=== PATIENT | female | born 1940 | race Caucasian/White ===

== ENCOUNTER 2018-04-16 12:03 | Inpatient (IN) | payer MEDICARE ==
[~2018-04-16] VITALS: Ht 165.1 cm; Wt 66.2 kg
--- OUTSIDE RECORDS SUMMARY | ~2018-04-16 | XMS | Encounter Summary ---
Demographics + + + | Address | [address] | | | [place] [address] | + + + | Home Phone | | + + + | Preferred Language | Unknown | + + + | Marital Status | | + + + | Jainism Affiliation | Unknown | + + + | Race | Unknown | + + + | Ethnic Group | Unknown | + + + Author + + + | Author | [facility] | + + + | Organization | [facility] | + + + | Address | Unknown | + + + | Phone | Unavailable | + + + Support + + +---------+ + | Name | Relationship | Address | Phone | + + +---------+ + | Moo Del Castillo | ECON | Unknown | | + + +---------+ + Care Team Providers + +------+ + | Care Sharepoint Engineer Name | Role | Phone | + +------+ + | Leida Lew NP | PCP | | + +------+ + Reason for Visit + + + | Reason | Comments | + + + | Labs Only | Maritza Maciel dated 04/11/2018; , 04/09/2018 | | | Leida Lew | + + + Encounter Details +--------+ + + + + | Date | Type | Department | Care Team | Description | +--------+ + + + + | 04/11/ | Documentati | [facility] | Dee Wiggins CMA | Labs Only (Labs from | | 2018 | on Only | [place] [address] | | Garfield Maciel dated | | | | [address] | | 04/11/2018; | | | | [place] [address] | | , 04/09/2018 | | | | [phone] | | Leida Lew) | +--------+ + + + + Social History + +-------+ +--------+------+ | Tobacco Use | Types | Packs/Day | Years | Date | | | | | Used | | + +-------+ +--------+------+ | Never Smoker | | | | | + +-------+ +--------+------+ + +---+---+---+ | Smokeless Tobacco: | | | | | Never Used | | | | + +---+---+---+ + + + | Sex Assigned at | Date Recorded | | | | + + + | Not on file | | + + + as of this encounter Plan of Treatment +--------+---------+ + + + | Date | Type | Specialty | Care Team | Description | +--------+---------+ + + + | 07/10/ | Office | Nephrology | Refugio Murphy MD | | | 2018 | Visit | | [address] | | | | | | [address] | | | | | | [phone] | | | | | | | | +--------+---------+ + + + as of this encounter Procedures + +--------+ + + + | Procedure Name | Priori | Date/Time | Associated Diagnosis | Comments | | | ty | | | | + +--------+ + + + | PROTEIN / CREATININE | Routin | 04/11/2018 | | Results for this | | RATIO, URINE | e | 8:54 AM | | procedure are in the | | | | PDT | | results section. | + +--------+ + + + | PTH INTACT NO | Routin | 04/11/2018 | | Results for this | | CALCIUM | e | 8:54 AM | | procedure are in the | | | | PDT | | results section. | + +--------+ + + + | URINE MICROSCOPIC | Routin | 04/09/2018 | | Results for this | | ONLY | e | 3:47 PM | | procedure are in the | | | | PDT | | results section. | + +--------+ + + + | TSH | Routin | 04/09/2018 | | Results for this | | | e | 3:47 PM | | procedure are in the | | | | PDT | | results section. | + +--------+ + + + | T4, FREE | Routin | 04/09/2018 | | Results for this | | | e | 3:47 PM | | procedure are in the | | | | PDT | | results section. | + +--------+ + + + in this encounter Results Protein / creatinine ratio, urine (04/11/2018 8:54 AM) + +-------+ + + | Component | Value | Ref Range | Performed At | + +-------+ + + | UR | 0.115 | 0 - 0.325 | | | PROTEIN/CREATININE | | | | + +-------+ + + + + | Specimen | + + | Urine - Urine, | | Unspecified Source | + + PTH intact no calcium (04/11/2018 8:54 AM) + +-------+ + + | Component | Value | Ref Range | Performed At | + +-------+ + + | PTH INTACT NO | 34.9 | 12 - 88 pg/mL | | | CALCIUM | | | | + +-------+ + + + + | Specimen | + + | Blood | + + Urine microscopic only (04/09/2018 3:47 PM) + + + + + | Component | Value | Ref Range | Performed At | + + + + + | COLOR UA | Yellow | | | + + + + + | CLARITY | Clear | | | + + + + + | Specific [place], UA | 1.007 | 1.005 - 1.030 | | + + + + + | LEUKOCYTE ESTERASE | Trace | | | + + + + + | NITRITE | Negative | | | + + + + + | UROBILINOGEN | Normal | | | + + + + + | PROTEIN | Negative | | | + + + + + | PH,URINE | 6.5 | 5.0 - 8.5 | | + + + + + | BLOOD | Negative | | | + + + + + | KETONES | Negative | | | + + + + + | BILIRUBIN | Negative | | | + + + + + | GLUCOSE | Negative | | | + + + + + + + | Specimen | + + | Urine | + + + + + | Narrative | Performed At | + + + | RBC's: 1-2 ( poor clean catch) WBC's: 20- Epithelial Cells: | | | 20-29 Bacteria: 1+ | | + + + Free T4 (04/09/2018 3:47 PM) + +-------+ + + | Component | Value | Ref Range | Performed At | + +-------+ + + | FREE T4 | 0.84 | 0.61 - 1.12 | | + +-------+ + + + + | Specimen | + + | Blood | + + TSH (04/09/2018 3:47 PM) + + + + + | Component | Value | Ref Range | Performed At | + + + + + | TSH | 12.79 (A) | 0.35 - 4.94 uIU/mL | | + + + + + + + | Specimen | + + | Blood | + + in this encounter Visit Diagnoses Not on filein this encounter"
--- OUTSIDE RECORDS SUMMARY | ~2018-04-16 | XMS | Encounter Summary ---
Demographics + + + | Address | [address] | | | [place] [address] | + + + | Home Phone | | + + + | Preferred Language | Unknown | + + + | Marital Status | | + + + | Hindu Affiliation | Unknown | + + + | Race | Unknown | + + + | Ethnic Group | Unknown | + + + Author + + + | Author | [facility] | + + + | Organization | [facility] | + + + | Address | Unknown | + + + | Phone | Unavailable | + + + Support + + +---------+ + | Name | Relationship | Address | Phone | + + +---------+ + | Moo Del Castillo | ECON | Unknown | | + + +---------+ + Care Team Providers + +------+ + | Care Bulb Farmworker Name | Role | Phone | + +------+ + | Leida Lew NP | PCP | | + +------+ + Reason for Visit +--------+ + | Reason | Comments | +--------+ + | Other | Blood Pressure Log dated 04/12/2018-04/24/2018 | +--------+ + Encounter Details +--------+ + + + + | Date | Type | Department | Care Team | Description | +--------+ + + + + | 04/26/ | Documentati | [facility] | Dee Wiggins CMA | Other (Blood | | 2018 | on Only | [place] [address] | | Pressure Log dated | | | | [address] | | 04/12/2018-04/24/2018) | | | | [place] [address] | | | | | | [phone] | | | +--------+ + + + + Social [...] | Refugio Murphy MD | | | 2017 | Visit | | [address] | | | | | | [address] | | | | | | [id number] | | | | | | | | +--------+---------+ + + + as of this encounter Visit Diagnoses Not on filein this encounter"
--- OUTSIDE RECORDS SUMMARY | ~2018-04-16 | XMS | Clinical Summary ---
Demographics + + + | Address | [address] | | | [place] [address] | + + + | Home Phone | | + + + | Preferred Language | Unknown | + + + | Marital Status | | + + + | Sikhism Affiliation | 1027 | + + + | Race | Unknown | + + + | Ethnic Group | Unknown | + + + Author + + + | Author | [facility] | | | and [place] | + + + | Organization | [facility] | | | and [place] | + + + | Address | Unknown | + + + | Phone | Unavailable | + + + Support + + +---------+ + | Name | Relationship | Address | Phone | + + +---------+ + | RO MIRANDA | ECON | Unknown | | + + +---------+ + Care Team Providers + +------+ + | Care Tile Layer Drainage Name | Role | Phone | + +------+ + PP | Unavailable | + +------+ + Allergies Not on File Current Medications Not on file Active Problems Not on file Social History + +-------+ +--------+------+ | Tobacco Use | Types | Packs/Day | Years | Date | | | | | Used | | + +-------+ +--------+------+ | Never Assessed | | | | | + +-------+ +--------+------+ + + + | Sex Assigned at | Date Recorded | | | | + + + | Not on file | | + + + Plan of Treatment + + + + + | Health Maintenance | Due Date | Last Done | Comments | + + + + + | Vaccine: | | | | | Dtap/Tdap/Td (1 - | 2 | | | | Tdap) | | | | + + + + + | Vaccine: | | | | | Pneumococcal 65+ | 8 | | | | Low/Medium Risk (1 | | | | | of 2 - PCV13) | | | | + + + + + | Vaccine: Influenza | | | | | (#1) | 8 | | | + + + + + Results Not on filefrom Last 3 Months"
--- OUTSIDE RECORDS SUMMARY | ~2018-04-16 | XMS | Encounter Summary ---
Demographics + + + | Address | [address] | | | [place] [address] | + + + | Home Phone | | + + + | Preferred Language | Unknown | + + + | Marital Status | | + + + | Rastafarian Affiliation | Unknown | + + + | Race | Unknown | + + + | Ethnic Group | Unknown | + + + Author + + + | Author | [facility] | + + + | Organization | [facility] | + + + | Address | Unknown | + + + | Phone | Unavailable | + + + Support + + +---------+ + | Name | Relationship | Address | Phone | + + +---------+ + | Moo Del Castillo | ECON | Unknown | | + + +---------+ + Care Team Providers + +------+ + | Care University Partnership Rep Name | Role | Phone | + +------+ + | Leida Lew INDUSTRIAL MAINTENANCE TECHNICIAN | PCP | | + +------+ + Encounter Details +--------+---------+ + + + | Date | Type | Department | Care Team | Description | +--------+---------+ + + + | 04/11/ | Office | [facility] | Refugio Murphy MD | CKD (chronic kidney | | 2018 | Visit | [place] [address] | [address] | disease), stage III | | | | [address] | [address] [place], [place] | (Primary Dx); | | | | [place] [address] | [address] | Essential | | | | [phone] | | hypertension, | | | | | | benign; Nocturia | +--------+---------+ + + + Social History + +-------+ [...] + + + as of this encounter Last Filed Vital Signs + + + + | Vital Sign | Reading | Time Taken | + + + + | Blood Pressure | 158/86 | 04/11/2018 2:49 PM PDT | + + + + | Pulse | 70 | 04/11/2018 2:49 PM PDT | + + + + | Temperature | 36.1 C (96.9 F) | 04/11/2018 2:49 PM PDT | + + + + | Respiratory Rate | - | - | + + + + | Oxygen Saturation | 95% | 04/11/2018 2:49 PM PDT | + + + + | Inhaled Oxygen | - | - | | Concentration | | | + + + + | Weight | 66.5 kg (146 lb 11.2 | 04/11/2018 2:49 PM PDT | | | oz) | | + + + + | Height | 165.1 cm (5' 5") | 04/11/2018 2:49 PM PDT | + + + + | Body Mass Index | 24.41 | 04/11/2018 2:49 PM PDT | + + + + in this encounter Instructions Patient Instructions - Refugio Murphy MD - 04/11/2018 2:40 PM PDTDiscussions/Recommendatio ns: I discussed today with Ms. Del Castillo the meaning of her CKD and the interaction of that with her hypertension. I stressed the importance of keeping her BP controlled and avoiding getting dehydrated i f we are to have a chance at helping preserve her renal function. She showed good understan arthur. I gave her instructions on how to chart her blood pressure in the appropriate manner at home. She is to call us if they fall outside of the optimal provided range. She will bring her sphygmomanometer for validation once a year. She will strictly abide by a low salt diet and will avoid all kinds of NSAIDs for analge nina. Also: I asked her to start the Lisinopril prescribed thru your office at 10 mg daily. She will report back to me her home BP readings in 2 weeks. At that time, I will decide whether any change to his vasoactive regimen is warranted. She will continue to F/U with your office regularly. She will have a RFP, CBC, urinalysis, Urine Rrinbsi-so-gdoojrbfwp ratio before she comes back in 3 months.in this encounter Progress Notes Refugio Murphy MD - 04/11/2018 2:40 PM PDTFormatting of this note may be different from clive roque original. Patient Active Problem List Diagnosis CKD (chronic kidney disease), stage III Essential hypertension, benign Nocturia Dear Leida: I saw your patient Ms. Del Castillo in the office today. As you are familiar with her case, I taco l not state her past history in detail. Briefly, she is a 77 y.o. female patient with past history as delineated above; she is here to F/U on her CKD & its associated complications. Her sCr & eGFR were 1.1 & 48 on 12/05/17. The patient has history of hypertension since the age of ~47; her BP control has been: unk nown. she denies any history of prolonged exposure to NSAIDs or recent exposure to known nep hrotoxins. she denies any recurrent nephrolithiasis or pyelonephritis. she tells me that she 's had no history of urinary retention, gross hematuria or dysuria. she has no incontinence symptoms. No symptoms of UTI; she has 1 or 2 nightly nocturia. No history of passing kidne y stones. she has no foamy urine either. her baseline Creatinine is 1.1 from 12/05/17. There is no family history of renal genetic diseases such as PKD. she says that she feels 'good ' today. she denies any blurred vision tinnitus, headache, f ever, chills, or cough. No nausea, vomiting, abdominal pain, diarrhea, melena, or hematoche dominique. No chest pain, palpitation, dizziness, loss of consciousness, orthopnea, paroxysmal no cturnal dyspnea, or leg edema. The following portions of the patient's history were reviewed and updated as appropriate: a llergies, current medications, past medical history, past social history, past surgical hist ory, family history and problem list. I also reviewed with her the report of her U/S from 12/2017: no evidence of any significant renal anatomic abnormalities; R 10.8 cm; Left 9.3 cm; post-void residual was 43 mL. As in History of Present Illness & in Assessment. All the pertinent systems were reviewed a nd were otherwise negative. Current Outpatient Prescriptions Medication Sig Dispense Refill levothyroxine (SYNTHROID) 50 MCG tablet Take 50 mcg by mouth every morning before break fast. atorvastatin (LIPITOR) 10 MG tablet Take 10 mg by mouth daily. hydrocodone-acetaminophen (VICODIN) 5-500 MG per tablet Take 1 tablet by mouth every 6 (six) hours as needed for Pain. lisinopril (ZESTRIL) 20 MG tablet Take 10 mg by mouth daily. methocarbamol (ROBAXIN) 750 MG tablet Take 750 mg by mouth 4 (four) times daily. No current facility-administered medications for this visit. she is only taking the Levothyroxine at this time. Physical Exam: BP 158/86 (BP Location: Right upper arm, Patient Position: Sitting) | Pulse 70 | Temp 96. 9 F (36.1 C) (Temporal) | Ht 1.651 m (5' 5") | Wt 66.5 kg (146 lb 11.2 oz) | SpO2 95% | BMI 24.41 kg/m General appearance: Pleasant, not in acute distress. Neck: Supple without tracheal deviation or jugular venous distension. Head and ENT: Head is atraumatic. The oropharynx is without erythema or thrush. Eyes: Anicteric. The extraocular muscle movements are normal. Lungs: Clear to auscultation bilaterally. There are no wheezes. Heart: Regular rate and rhythm without any rub, gallop. No murmur. Abdominal exam: Soft and nontender with normal bowel sounds. Musculoskeletal: No costovertebral angle tenderness bilaterally. Extremities: Warm to touch with no leg edema. There is no cyanosis. Skin: There are no rashes, petechiae, or ecchymosis. Neurological: Awake, alert, and oriented to time, place, and person. Normal gross motor po wer. There is no asterixis. Psychiatric: The patient s behavior is normal. Judgment and thought content are normal. Lab Results Component Value Date BUN 18 04/11/2018 CREATININE 0.99 04/11/2018 EGFR 55 (A) 04/11/2018 NA 142 04/11/2018 K 4.2 04/11/2018 CL 105 04/11/2018 CO2 25 04/11/2018 CA 9.7 04/11/2018 PHOS 4.2 04/11/2018 ALB 4.3 04/11/2018 HGB 11.9 04/11/2018 URICACID 4.9 12/15/2017 WBC 5.0 04/11/2018 HCT 35.4 (A) 04/11/2018 LABPROT 0.079 12/15/2017 Assessment: Ms. Del Castillo is a 77 y.o. female patient with stage IIIA CKD on a background of longstanding h ypertension. The most likely pathology here is that of hypertensive nephrosclerosis/arteriol osclerosis. RENAL FUNCTION: Stable vs 12/05/17 BLOOD PRESSURE: Her uncontrolled BP's is there BLOOD SUGAR: Reports normal ELECTROLYTES: okay ANEMIA: none VITAMIN D: To be checked thru your office PARATHYROID HORMONE: To be checked URIC ACID: okay PROTEINURIA: trivial URINALYSIS: No UTI or hematuria VOLUME STATUS: Euvolumic. Discussions/Recommendations: I discussed today with Ms. Del Castillo the meaning of her CKD and the interaction of that with her hypertension. I stressed the importance of keeping her BP controlled and avoiding getting dehydrated i f we are to have a chance at helping preserve her renal function. She showed good understan ding. I gave her instructions on how to chart her blood pressure in the appropriate manner at home. She is to call us if they fall outside of the optimal provided range. She will bring her sphygmomanometer for validation once a year. She will strictly abide by a low salt diet and will avoid all kinds of NSAIDs for analge nina. Also: I have discussed with the patient today the renal risks of orthopedic surgery in the set ting of her mild chronic kidney disease & hypertension. She understands that she is in the l ow risk category for DAYNA from her planned surgery. I have no objection from the renal perspe ctive for such a surgery, as long as the customary precautions to decrease the risk of DAYNA a re undertaken. I asked her to start the Lisinopril prescribed thru your office at 10 mg daily. She will report back to me her home BP readings in 2 weeks. At that time, I will decide whether any change to his vasoactive regimen is warranted. She will continue to F/U with your office regularly. She will have a RFP, CBC, urinalysis, Urine Xradfxe-nr-yeyivhhqfq ratio before she comes back in 3 months. 15 minutes of this 25-minute visit was spent in education and counseling. Thank you Leida for the opportunity to see this patient in F/U today. Please do not hesitat e to call me at any time with questions or concerns. Truly yours, Refugio Murphy MD FACP KENNY JEAN in this encounter Plan of Treatment +--------+---------+ + + + | Date | Type | Specialty | Care Team | Description | +--------+---------+ + + + | 07/10/ | Office | Nephrology | Refugio Murphy MD | | | 2018 | Visit | | [address] | | | | | | [address] [place], [place] | | | | | | [address] | | | | | | | | +--------+---------+ + + + as of this encounter Visit Diagnoses + + | Diagnosis | + + | CKD (chronic kidney disease), stage III - Primary | + + | Chronic kidney disease, Stage III (moderate) | + + | Essential hypertension, benign | + + | Nocturia | + +
--- OUTSIDE RECORDS SUMMARY | ~2018-04-16 | XMS | Encounter Summary ---
Demographics + + + | Address | [address] | | | [place] [address] | + + + | Home Phone | | + + + | Preferred Language | Unknown | + + + | Marital Status | | + + + | Roman Catholic Affiliation | Unknown | + + + | Race | Unknown | + + + | Ethnic Group | Unknown | + + + Author + + + | Author | [facility] | + + + | Organization | [facility] | + + + | Address | Unknown | + + + | Phone | Unavailable | + + + Support + + +---------+ + | Name | Relationship | Address | Phone | + + +---------+ + | Moo Del Castillo | ECON | Unknown | | + + +---------+ + Care Team Providers + +------+ + | Care Information Technology Assistant Name | Role | Phone | + +------+ + | Leida Lew NP | PCP | | + +------+ + Reason for Visit + + + | Reason | Comments | + + + | Labs Only | Labs chintan marino dated 04/06/2018; | + + + Encounter Details +--------+ + + + + | Date | Type | Department | Care Team | Description | +--------+ + + + + | 04/10/ | Documentati | [facility] | Dee Wiggins CMA | Labs Only (Labs from | | 2018 | on Only | [place] [address] | | Garfield marino dated | | | | [address] | | 04/06/2018; | | | | [place] [address] | | ) | | | | [phone] | | | +--------+ + + + [...] | | | | | | [address] [place], [place] | | | | | | [address] | | | | | | | | +--------+---------+ + + + as of this encounter Procedures + +--------+ + + + | Procedure Name | Priori | Date/Time | Associated Diagnosis | Comments | | | ty | | | | + +--------+ + + + | CBC W/AUTO DIFF | Routin | 04/06/2018 | | Results for this | | (REFLEX TO MANUAL) | e | 8:26 AM | | procedure are in the | | | | PDT | | results section. | + +--------+ + + + | TSH | Routin | 04/06/2018 | | Results for this | | | e | 8:26 AM | | procedure are in the | | | | PDT | | results section. | + +--------+ + + + | T4, FREE | Routin | 04/06/2018 | | Results for this | | | e | 8:26 AM | | procedure are in the | | | | PDT | | results section. | + +--------+ + + + in this encounter Results CBC W/Auto Diff (Reflex to Manual) (04/06/2018 8:26 AM) + + + + + | Component | Value | Ref Range | Performed At | + + + + + | WBC | 5.1 | 4.5 - 11.0 10^3/mL | | + + + + + | RBC | 3.8 (A) | 4.2 - 5.4 10^6/ L | | + + + + + | HGB | 11.8 | 11.5 - 15.5 g/dL | | + + + + + | HCT | 35.7 (A) | 36 - 46 % | | + + + + + | MCV | 94.3 | 80 - 100 fL | | + + + + + | MCH | 31.1 | 25 - 34 pg | | + + + + + | MCHC | 33 | 32 - 36 g/dL | | + + + + + | PLT | 273 | 150 - 450 K/ L | | + + + + + | RDW SD | 13.5 | 11.5 - 15.5 % | | + + + + + | MPV | | fL | | + + + + + | DIFF TYPE | | | | + + + + + | NEUTROPHILS | | % | | + + + + + | LYMPHOCYTES | | % | | + + + + + | MONOCYTES | | % | | + + + + + | EOSINOPHILS | | % | | + + + + + | BASOPHILS | | % | | + + + + + | NEUTROPHILS ABS | | / L | | + + + + + | LYMPHOCYTES ABS | | / L | | + + + + + | MONOCYTES ABS | | / L | | + + + + + | EOSINOPHILS ABS | | / L | | + + + + + | BASOPHILS ABS | | / L | | + + + + + + + | Specimen | + + | Blood | + + TSH (04/06/2018 8:26 AM) + + + + + | Component | Value | Ref Range | Performed At | + + + + + | TSH | 12.79 (A) | 0.35 - 4.94 uIU/mL | | + + + + + + + | Specimen | + + | Blood | + + Free T4 (04/06/2018 8:26 AM) + +-------+ + + | Component [...]
--- OUTSIDE RECORDS SUMMARY | ~2018-04-16 | XMS | Encounter Summary ---
Demographics + + + | Address | [address] | | | [place] [address] | + + + | Home Phone | | + + + | Preferred Language | Unknown | + + + | Marital Status | | + + + | Confucianism Affiliation | Unknown | + + + | Race | Unknown | + + + | Ethnic Group | Unknown | + + + Author + + + | Author | [facility] | + + + | Organization | [facility] | + + + | Address | Unknown | + + + | Phone | Unavailable | + + + Support + + +---------+ + | Name | Relationship | Address | Phone | + + +---------+ + | Moo Del Castillo | ECON | Unknown | | + + +---------+ + Care Team Providers + +------+ + | Care Etymology Professor Name | Role | Phone | + +------+ + | Leida Lew NP | PCP | | + +------+ + Reason for Visit +--------+ + | Reason | Comments | +--------+ + | Other | Blood Pressure Check | +--------+ + Encounter Details +--------+ + + + + | Date | Type | Department | Care Team | Description | +--------+ + + + + | 04/25/ | Telephone | [facility] | Dee Wiggins CMA | Other (Blood | | 2017 | | [place] [address] | | Pressure Check) | | | | [address] | | | | | | [place] [address] | | | | | | [phone] | | | +--------+ + + + [...] [place] | | | | | | [address] | | | | | | | | +--------+---------+ + + + as of this encounter Visit Diagnoses Not on filein this encounter"
--- OUTSIDE RECORDS SUMMARY | ~2018-04-16 | XMS | Encounter Summary ---
Demographics + + + | Address | [address] | | | [place] [address] | + + + | Home Phone | | + + + | Preferred Language | Unknown | + + + | Marital Status | | + + + | Cheondoism Affiliation | Unknown | + + + | Race | Unknown | + + + | Ethnic Group | Unknown | + + + Author + + + | Author | [facility] | + + + | Organization | [facility] | + + + | Address | Unknown | + + + | Phone | Unavailable | + + + Support + + +---------+ + | Name | Relationship | Address | Phone | + + +---------+ + | Moo Del Castillo | ECON | Unknown | | + + +---------+ + Care Team Providers + +------+ + | Care Die Operator Name | Role | Phone | + +------+ + | Leida Lew DEPARTMENT STORE DOOR GREETER | PCP | | + +------+ + Encounter Details +--------+ + + + + | Date | Type | Department | Care Team | Description | +--------+ + + + + | 04/11/ | Orders Only | [facility] | Dee Wiggins CMA | Hypertension, | | 2017 | | [place] [address] | | unspecified type; | | | | [address] | | Chronic kidney | | | | [place] [address] | | disease, stage III | | | | [phone] | | (moderate); Mixed | | | | | | hyperlipidemia; CKD | | | | | | (chronic kidney | | | | | | disease), stage III; | | | | | | Essential | | | | | | hypertension, | | | | | | benign; Nocturia | +--------+ + + + + Social [...] | | | | | | [address] | | | | | | [address] | | | | | | | | +--------+---------+ + + + as of this encounter Procedures + +--------+ + + + | Procedure Name | Priori | Date/Time | Associated Diagnosis | Comments | | | ty | | | | + +--------+ + + + | URINALYSIS (REFLEX | Routin | 04/11/2018 | Hypertension, | Results for this | | TO MICRO) | e | 8:54 AM | unspecified type | procedure are in the | | | | PDT | Chronic kidney | results section. | | | | | disease, stage III | | | | | | (moderate) Mixed | | | | | | hyperlipidemia CKD | | | | | | (chronic kidney | | | | | | disease), stage III | | | | | | Essential | | | | | | hypertension, benign | | | | | | Nocturia | | + +--------+ + + + | CBC W/AUTO DIFF | Routin | 04/11/2018 | Hypertension, | Results for this | | (REFLEX TO MANUAL) | e | 8:54 AM | unspecified type | procedure are in the | | | | PDT | Chronic kidney | results section. | | | | | disease, stage III | | | | | | (moderate) Mixed | | | | | | hyperlipidemia CKD | | | | | | (chronic kidney | | | | | | disease), stage III | | | | | | Essential | | | | | | hypertension, benign | | | | | | Nocturia | | + +--------+ + + + | RENAL FUNCTION PANEL | Routin | 04/11/2018 | Hypertension, | Results for this | | | e | 8:54 AM | unspecified type | procedure are in the | | | | PDT | Chronic kidney | results section. | | | | | disease, stage III | | | | | | (moderate) Mixed | | | | | | hyperlipidemia CKD | | | | | | (chronic kidney | | | | | | disease), stage III | | | | | | Essential | | | | | | hypertension, benign | | | | | | Nocturia | | + +--------+ + + + in this encounter Results CBC W/Auto Diff (Reflex to Manual) (04/11/2018 8:54 AM) + + + + + | Component | Value | Ref Range | Performed At | + + + + + | WBC | 5.0 | 4.5 - 11.0 10^3/mL | [facility] | | | | | LABORATORY | + + + + + | RBC | 3.8 (A) | 4.2 - 5.4 10^6/ L | [facility] | | | | | LAB[facility] | + + + + + | HGB | 11.9 | 11.5 - 15.5 g/dL | [facility] | | | | | LAB[facility]AT[facility] | + + + + + | HCT | 35.4 (A) | 36 - 46 % | [facility] | | | | | LAB[facility] | + + + + + | MCV | 93.1 | 80 - 100 fL | [facility] | | | | | LAB[facility] | + + + + + | MCH | 31.3 | 25 - 34 pg | [facility] | | | | | LAB[facility] | + + + + + | MCHC | 33.6 | 32 - 36 g/dL | [facility] | | | | | LAB[facility] | + + + + + | PLT | 284 | 150 - 450 K/ L | [facility] | | | | | LAB[facility]AT[facility] | + + + + + | RDW SD | 13.5 | 11.5 - 15.5 % | [facility] | | | | | LAB[facility] | + + + + + | MPV | | fL | [facility] | | | | | LAB[facility] | + + + + + | DIFF TYPE | | | [facility] | | | | | [facility] | + + + + + | NEUTROPHILS | | % | [facility] | | | | | [facility] | + + + + + | LYMPHOCYTES | | % | [facility] | | | | | [facility] | + + + + + | MONOCYTES | | % | [facility] | | | | | LAB[facility] | + + + + + | EOSINOPHILS | | % | [facility] | | | | | [facility] | + + + + + | BASOPHILS | | % | [facility] | | | | | [facility] | + + + + + | NEUTROPHILS ABS | | / L | [facility] | | | | | [facility] | + + + + + | LYMPHOCYTES ABS | | / L | [facility] | | | | | [facility] | + + + + + | MONOCYTES ABS | | / L | [facility] | | | | | [facility] | + + + + + | EOSINOPHILS ABS | | / L | [facility] | | | | | [facility] | + + + + + | BASOPHILS ABS | | / L | [facility] | | | | | LAB[facility] | + + + + + + + | Specimen | + + | Blood | + + + + + + + | Performing | Address | City/State/Zipcode | Phone Number | | Organization | | | | + + + + + | [facility] | [address] | [place] [address] | [phone] | | LABORATORY | [address] | | | + + + + + Renal function panel (04/11/2018 8:54 AM) + +--------+ + + | Component | Value | Ref Range | Performed At | + +--------+ + + | GLUCOSE | 91 | 84 - 110 mg/dL | [facility] | | | | | LABORATORY | + +--------+ + + | BUN | 18 | 9.8 - 20.1 mg/dL | [facility] | | | | | LABORATORY | + +--------+ + + | CREATININE | 0.99 | 0.44 - 1.03 mg/dL | [facility] | | | | | LAB[facility]AT[facility] | + +--------+ + + | PHOSPHORUS | 4.2 | 2.3 - 4.7 mg/dL | [facility] | | | | | LAB[facility] | + +--------+ + + | Albumin | 4.3 | 3.0 - 4.9 | [facility] | | | | | LAB[facility] | + +--------+ + + | SODIUM | 142 | 136 - 145 mmol/L | [facility] | | | | | LAB[facility]ATORY | + +--------+ + + | POTASSIUM | 4.2 | 3.5 - 4.5 mmol/L | [facility] | | | | | LAB[facility]AT[facility] | + +--------+ + + | CHLORIDE | 105 | 98 - 107 mmol/L | [facility] | | | | | LAB[facility]AT[facility] | + +--------+ + + | CO2 | 25 | 22 - 32 mmol/L | [facility] | | | | | LAB[facility]AT[facility] | + +--------+ + + | ANION GAP AGAP | 12 | 5 - 12 mmol/L | [facility] | | | | | LAB[facility] | + +--------+ + + | GFR MDRD Non Af Amer | | | [facility] | | | | | LAB[facility]ATORY | + +--------+ + + | Phosphorus,Inorganic | | | [facility] | | | | | LAB[facility]ATORY | + +--------+ + + | BUN/CREAT | | | [facility] | | | | | LAB[facility] | + +--------+ + + | CALCIUM | 9.7 | 8.2 - 10.6 mg/dL | [facility] | | | | | LAB[facility]ORY | + +--------+ + + | EGFR | 55 (A) | 60 mg/dL | [facility] | | | | | LABORATORY | + +--------+ + + + + | Specimen | + + | Blood | + + + + + + + | Performing | Address | City/State/Zipcode | Phone Number | | Organization | | | | + + + + + | [facility] | [address] | [place] [address] | [phone] | | LABORATORY | [address] | | | + + + + + Urinalysis (reflex to micro) (04/11/2018 8:54 AM) + + + + + | Component | Value | Ref Range | Performed At | + + + + + | COLOR UA | Yellow | | [facility] | | | | | LABORATORY | + + + + + | CLARITY | Clear | | [facility] | | | | | LABORATORY | + + + + + | SPECIFIC | 1.015 | 1.005 - 1.030 | [facility] | | GRAVITY,URINE | | | LABORATORY | + + + + + | LEUKOCYTE ESTERASE | Trace | | [facility] | | | | | LABORATORY | + + + + + | NITRITE | Negative | | [facility] | | | | | LABORATORY | + + + + + | UROBILINOGEN | Normal | | [facility] | | | | | LABORATORY | + + + + + | PROTEIN | Negative | | [facility] | | | | | LABORATORY | + + + + + | PH,URINE | 5.0 | 5.0 - 8.5 | [facility] | | | | | LABORATORY | + + + + + | BLOOD | Negative | | [facility] | | | | | LABORATORY | + + + + + | KETONES | Negative | | [facility] | | | | | LAB[facility]ATORY | + + + + + | BILIRUBIN | Negative | | [facility] | | | | | LABORATORY | + + + + + | GLUCOSE | Negative | | [facility] | | | | | LAB[facility]ATORY | + + + + + + + | Specimen | + + | Urine | + + + + + | Narrative | Performed At | + + + | WBC's: 3-4 Epithelial cell: 5-9 | [facility] | | | LABORATORY | + + + + + + + + | Performing | Address | City/State/Zipcode | Phone Number | | Organization | | | | + + + + + | [facility] | [address] | [place] [address] | [phone] | | LABORATORY | [address] | | | + + + + + in this encounter Visit Diagnoses + + | Diagnosis | + + | Hypertension, unspecified type | + + | Chronic kidney disease, stage III (moderate) | + + | Chronic kidney disease, Stage III (moderate) | + + | Mixed hyperlipidemia | + + | CKD (chronic kidney disease), stage III | + + | Chronic kidney disease, Stage III (moderate) | + + | Essential hypertension, benign | + + | Nocturia | + +"
--- OUTSIDE RECORDS SUMMARY | ~2018-04-16 | XMS | Clinical Summary ---
Demographics + + + | Address | [address] | | | [place] [address] | + + + | Home Phone | | + + + | Preferred Language | Unknown | + + + | Marital Status | | + + + | Synagogue Affiliation | Unknown | + + + | Race | Unknown | + + + | Ethnic Group | Unknown | + + + Author + + + | Author | [facility] | + + + | Organization | [facility] | + + + | Address | Unknown | + + + | Phone | Unavailable | + + + Support + + +---------+ + | Name | Relationship | Address | Phone | + + +---------+ + | Moo Del Castillo | ECON | Unknown | | + + +---------+ + Care Team Providers + +------+ + | Care Dancing Instructor Name | Role | Phone | + +------+ + | Leida Lew SHOE SINGER | PP | | + +------+ + Allergies No Known Allergies Current Medications + + +-------+---------+------+------+-------+ | Prescription | Sig. | Disp. | Refills | Star | End | Statu | | | | | | t | Date | s | | | | | | Date | | | + + +-------+---------+------+------+-------+ | lisinopril | Take 10 mg by mouth | | | | | Activ | | (ZESTRIL) 20 MG | daily. | | | | | e | | tablet | | | | | | | + + +-------+---------+------+------+-------+ | atorvastatin | Take 10 mg by mouth | | | | | Activ | | (LIPITOR) 10 MG | daily. | | | | | e | | tablet | | | | | | | + + +-------+---------+------+------+-------+ | methocarbamol | Take 750 mg by mouth | | | | | Activ | | (ROBAXIN) 750 MG | 4 (four) times | | | | | e | | tablet | daily. | | | | | | + + +-------+---------+------+------+-------+ | | Take 1 tablet by | | | | | Activ | | hydrocodone-acetamin | mouth every 6 (six) | | | | | e | | ophen (VICODIN) | hours as needed for | | | | | | | 5-500 MG per tablet | Pain. | | | | | | + + +-------+---------+------+------+-------+ | levothyroxine | Take 50 mcg by mouth | | | | | Activ | | (SYNTHROID) 50 MCG | every morning | | | | | e | | tablet | before breakfast. | | | | | | + + +-------+---------+------+------+-------+ Active Problems + + + | Problem | Noted Date | + + + | CKD (chronic kidney disease), stage III | 12/18/2017 | + + + | Essential hypertension, benign | 12/18/2017 | + + + | Nocturia | 12/18/2017 | + + + Encounters +--------+ + + + + | Date | Type | Specialty | Care Team | Description | +--------+ + + + + | 04/26/ | Documentati | | Dee Wiggins CMA | Josselyn (Blood | | 2017 | on Only | | | Pressure Log dated | | | | | | 04/12/2018-04/24/2018) | +--------+ + + + + | 04/25/ | Telephone | | Dee Wiggins CMA | Other (Blood | | 2017 | | | | Pressure Check) | +--------+ + + + | 04/12/ | Telephone | | Dee Wiggins CMA | | | 2017 | | | | | +--------+ + + + 04/11/ | Office | | Refugio Murphy MD | CKD (chronic kidney | | 2017 | Visit | | | disease), stage III | | | | | | (Primary Dx); | | | | | | Essential | | | | | | hypertension, | | | | | | benign; Nocturia | +--------+ + + + + | 04/11/ | Documentati | | Dee Wiggins CMA | Labs Only (Labs from | | 2017 | on Only | | | Good Maciel dated | | | | | | 04/11/2018; | | | | | | , 04/09/2018 | | | | | | Leida Lew) | +--------+ + + + + | 04/11/ | Orders Only | | Dee Wiggins CMA | Hypertension, | | 2017 | | | | unspecified type; | | | | | | Chronic kidney | | | | | | disease, stage III | | | | | | (moderate); Mixed | | | | | | hyperlipidemia; CKD | | | | | | (chronic kidney | | | | | | disease), stage III; | | | | | | Essential | | | | | | hypertension, | | | | | | benign; Nocturia | +--------+ + + + + | 04/10/ | Documentati | | Dee Wiggins FINISHER MAP AND CHART | Labs Only (Labs from | | 2017 | on Only | | | Good maciel dated | | | | | | 04/06/2018; | | | | | | ) | +--------+ + + + + | 04/10/ | Telephone | | Dee Wiggins CMA | Other (Needs to be | | 2017 | | | | scheduled for F/U) | +--------+ + + + + from Last 3 Months Social History + +-------+ +--------+------+ | Tobacco [...] on file | | + + + Last Filed Vital Signs + + + [...] PM PDT | + + + + Plan of Treatment +--------+---------+ + + + | Date | Type | Specialty | Care Team | Description | +--------+---------+ + + + | 07/10/ | Office | | Refugio Murphy MD | | | 2018 | Visit | | [address] | | | | | | [address] | | | | | | [address] | | | | | | | | +--------+---------+ + + + + + + + + | Health Maintenance | Due Date | Last Done | Comments | + + + + + | Vaccine: | | | | | Dtap/Tdap/Td (1 - | 2 | | | | Tdap) | | | | + + + + + | Colon Cancer | | | | | Screening | 3 | | | | (Colonoscopy) | | | | + + + + + | DEXA SCAN SCREENING | | | | | | 8 | | | + + + + + | Vaccine: | | | | | Pneumococcal 65+ | 8 | | | | Low/Medium Risk (1 | | | | | of 2 - PCV13) | | | | + + + + + | Statin Therapy | | | | | (optimal intensity) | 8 | | | + + + + + | Vaccine: Influenza | | | | | (#1) | 8 | | | + + + + + Procedures + +--------+ + + + | [...] section. | + +--------+ + + + from Last 3 Months Results Protein / creatinine ratio, urine (04/11/2018 [...] | | Unspecified Source | + + Urinalysis (reflex to micro) (04/11/2018 [...] + + + | [facility] | [address] | [place] [address] | [phone] | | LABORATORY | [address] | | | + + + + + CBC W/Auto Diff (Reflex to Manual) (04/11/2018 8:54 AM)Only the most recent of 2 results w ithin the time period is included. + + + + + | Component [...] + + + | [facility] | [address] | [place] [address] | [phone] | | LABORATORY | [address]vd[address] | | | + + + + + PTH intact no calcium (04/11/2018 8:54 AM) + +-------+ + + | Component | Value | Ref Range | Performed At | + +-------+ + + | PTH INTACT NO | 34.9 | 12 - 88 pg/mL | | | CALCIUM | | | | + +-------+ + + + + | Specimen | + + | Blood | + + Renal function panel (04/11/2018 8:54 AM) + +--------+ + + | Component | Value | Ref Range | Performed At | + +--------+ + + | GLUCOSE | 91 | 84 - 110 mg/dL | [facility] | | | | | LABORATORY | + +--------+ + + | BUN | 18 | 9.8 - 20.1 mg/dL | [facility] | | | | [...] + + + | [facility] | [address] | [place] [address] | [phone] | | LABORATORY | [address]vd[address] | | | + + + + + Urine microscopic only (04/09/2018 3:47 PM) + + + + + | Component | Value | Ref Range | Performed At | + + + + + | COLOR UA | Yellow | | | + + + + + | CLARITY | Clear | | | + + + + + | Specific [place], UA | 1.007 | 1.005 - 1.030 [...] RBC's: 1-2 ( poor clean catch) WBC's: 20-29 Epithelial Cells: | | | 20-29 Bacteria: 1+ | | + + + TSH (04/09/2018 3:47 PM)Only the most recent of 2 results within the time period is includ ed. + + + + + | Component | Value | Ref Range | Performed At | + + + + + | TSH | 12.79 (A) | 0.35 - 4.94 uIU/mL | | + + + + + + + | Specimen | + + | Blood | + + Free T4 (04/09/2018 3:47 PM)Only the most recent of 2 results within the time period is in cluded. + +-------+ + + | Component | Value | Ref Range | Performed At | + +-------+ + + | FREE T4 | 0.84 | 0.61 - 1.12 | | + +-------+ + + + + | Specimen | + + | Blood | + + from Last 3 Months Insurance + +--------+ +--------+-------+---------+ | Payer | Benefi | Subscriber | Type | Phone | Address | | | t Plan | ID | | | | | | / | | | | | | | Group | | | | | + +--------+ +--------+-------+---------+ | [place] [id number] | Medica | | | | | MODA | | re | | | | | | | | | | | | | | | | | | | | | | | | | | | | | | | | | | | | | | | | [place] - | | | | | | | [place] | | | | | + +--------+ +--------+-------+---------+ + +--------+ +--------+ + + | Guarantor Name | Accoun | Relation to | Date | Phone | Billing Address | | | t Type | Patient | of | | | | | | | | | | + +--------+ +--------+ + + | RUTHANN DEL CASTILLO | Person | Self [birth year] Home: | [address] | | | [place] | | 1941 | [phone] [place] | | | [place] | | | [phone] | [phone] | + +--------+ +--------+ + +
--- OUTSIDE RECORDS SUMMARY | ~2018-04-16 | XMS | Encounter Summary ---
Demographics + + + | Address | [address] | | | [place] [address] | + + + | Home Phone | | + + + | Preferred Language | Unknown | + + + | Marital Status | | + + + | Jain Affiliation | Unknown | + + + | Race | Unknown | + + + | Ethnic Group | Unknown | + + + Author + + + | Author | [facility] | + + + | Organization | [facility] | + + + | Address | Unknown | + + + | Phone | Unavailable | + + + Support + + +---------+ + | Name | Relationship | Address | Phone | + + +---------+ + | Moo Del Castillo | ECON | Unknown | | + + +---------+ + Care Team Providers + +------+ + | Care Music Ministries Director Name | Role | Phone | + +------+ + | Leida Lew NP | PCP | | + +------+ + Reason for Visit +--------+ + | Reason | Comments | +--------+ + | Other | Needs to be scheduled for F/U | +--------+ + Encounter Details +--------+ + + + + | Date | Type | Department | Care Team | Description | +--------+ + + + + | 04/10/ | Telephone | [facility] | Wiggins, Zhanna, FACTORER | Other (Needs to be | | 2017 | | [place] [address] | | scheduled for F/U) | | | | [address] | | | | | | [place] [address] | | | | | | [phone] | | | +--------+ + + + [...] | | | | | | [address] | | | | | | [id number] | | | | | | | | +--------+---------+ + + + as of this encounter Visit Diagnoses Not on filein this encounter"
--- OUTSIDE RECORDS SUMMARY | ~2018-04-16 | XMS | Encounter Summary ---
Demographics + + + | Address | [address] | | | [place] [address] | + + + | Home Phone | | + + + | Preferred Language | Unknown | + + + | Marital Status | | + + + | Roman Catholic Affiliation | Unknown | + + + | Race | Unknown | + + + | Ethnic Group | Unknown | + + + Author + + + | Author | [facility] | + + + | Organization | [facility] | + + + | Address | Unknown | + + + | Phone | Unavailable | + + + Support + + +---------+ + | Name | Relationship | Address | Phone | + + +---------+ + | Moo Del Castillo | ECON | Unknown | | + + +---------+ + Care Team Providers + +------+ + | Care Electronic Publishing Specialist Name | Role | Phone | + +------+ + | Leida Lew NP | PCP | | + +------+ + Encounter Details +--------+ + + + + | Date | Type | Department | Care Team | Description | +--------+ + + + + | 04/12/ | Telephone | [facility] | Dee Wiggins CMA | | | 2017 | | [place] [address] | | | | | | [address] | | | | | | [place], [place] [address] | | | | | | [phone] | | | +--------+ + + + [...] | | | | | | [address] [place], [place] | | | | | | [address] | | | | | | | | +--------+---------+ + + + + +--------+ + + | Name | Priori | Associated Diagnoses | Order Schedule | | | ty | | | + +--------+ + + | Renal function panel | Routin | CKD (chronic | Expected: | | | e | kidney disease), | 07/09/2018, Expires: | | | | stage III Essential | 04/12/2019 | | | | hypertension, | | | | | benign Nocturia | | + +--------+ + + | CBC W/Auto Diff (Reflex to | Routin | CKD (chronic | Expected: | | Manual) | e | kidney disease), | 07/09/2018, Expires: | | | | stage III Essential | 04/12/2019 | | | | hypertension, | | | | | benign Nocturia | | + +--------+ + + | Urinalysis (reflex to micro) | Routin | CKD (chronic | Expected: | | | e | kidney disease), | 07/09/2018, Expires: | | | | stage III Essential | 04/12/2019 | | | | hypertension, | | | | | benign Nocturia | | + +--------+ + + | Albumin/Creat Ratio | Routin | CKD (chronic | Expected: | | | e | kidney disease), | 07/09/2018, Expires: | | | | stage III Essential | 04/12/2019 | | | | hypertension, | | | | | benign Nocturia | | + +--------+ + + as of this encounter Visit Diagnoses + + | Diagnosis | + + | CKD (chronic kidney disease), stage III - Primary | + + | Chronic kidney disease, Stage III (moderate) | + + | Essential hypertension, benign | + + | Nocturia | + +"
[2018-04-16] MEDS ORDERED: SYNTHROID50 MCG PO (14:48)
[2018-04-16] MEDS ORDERED: MULTIVITAMIN W1 EACH PO (14:49)
--- NOTE | 2018-04-16 16:58 | NUR ---
PATIENT HERE TODAY FOR PREADMISSION APPOINTMENT. SHE IS SCHEDULED FOR A RIGHT TOTAL HIP ARTHROPLASTY ON 04/30/18. SHE REPORTS 2 STEPS INTO THE HOME WITH NO STEPS INSIDE. SHE HAS A WALK IN SHOWER IN THE BATHROOM. WE TALKED ABOUT THE NEED FOR A RAISED TOILET SEAT, SHOWER BENCH/CHAIR AND A HAND HELD SHOWER HEAD. WE ALSO SPOKE ABOUT THE NEED FOR A FRONT WHEELED WALKER. SHE HAS A PLACE IN MIND WHERE THESE ITEMS ARE AVAILABLE FOR USE AND WILL LOOK INTO OBTAINING THEM BEFORE SURGERY. SHE IS GOING TO A PHYSICAL THERAPY APPOINTMENT TODAY AT THE [facility] BUT LIVES IN [place] AND WOULD LIKE PHYSICAL THERAPY SET UP WITH LANDY CAO. HER SON RO WILL BE HERE TO TRANSPORT HER HOME AND SHE HAS A COUPLE OF FRIENDS TO HELP HER GET TO APPOINTMENTS. THIS INFORMATION WILL BE SENT TO DR ROHIT MCINTYRE AND POLY PLANNING FOR FURTHER FOLLOW UP.
[2018-04-23] MEDS ORDERED: LISINOPRIL20 MG PO (09:10)
--- NOTE | 2018-04-30 11:05 | NUR ---
04/30/18 1105 Karina Briceño 1045 PT ARRIVED IN PACU SLEEPY WITH NO C/O'S. BUNNY BOLSTER BETWEEN LEGS AND ICE TO RIGHT HIP. 1055 PELVIS XRAY DONE. NO C/O'S.
--- NOTE | 2018-04-30 13:17 | NUR ---
LE 1130 PT RETURNS TO DS WHILE WAITING FOR BED SPACE ON MS. IN TO CHECK ON PT. PT DROWSY, DOES NOT RESPOND WHEN SPOKEN TO. DOES OPEN EYES AND NOD HEAD. DRSG C,D,I. PT DENIES PAIN AND NAUSEA. BOLSTER, SCDS AND ICE IN PLACE. WATER GIVEN. CALL LIGHT IN REACH.
--- NOTE | 2018-04-30 13:20 | NUR ---
LE 1150 IN TO CHECK ON PT, PT'S SON AT BEDSIDE. PT COMPLAINING OF ITCHING ON NOSE AND FACE. NALUBUPHINE GIVEN. WHILE AT BEDSIDE WITH PT, PT C/O NAUSEA. EMESIS OF 100 MLS OF ORANGE FLUID NOTES. ZOFRAN GIVEN FOR NAUSEA. PT GIVEN COOL CLOTH. 1210 PT REMAINS NAUSEATED INTERMITTANTLY. NOTED FURTHER EMESIS. PT ASKING IF THIS IS NORMAL. PT REASSURED THAT NAUSEA AND VOMITING AFTER SURGERY IS NORMAL. DISCUSSED FURTHER MEDICATION OF THE PT WITH OSCAR TOMAS. OKAY TO GIVE PHENERGAN 6.25MG IF NEEDED. RN IN ROOM, MANTIANCE FLUIDS STARTED. 1215 RN AT BEDSIDE PT NOTES TO BE DROWSY AFTER DOSE OF NALBUPHINE GIVEN. 02 ASSESSED, PT DESAT TO 82%. 02 PER NC AT 2L APPLIED AND ENCOURAGED DEEP BREATHING. O2 NORMALIZED, PT RESTING. DISCUSSED HOLDING PHENERGAN WITH PT'S SON DO TO EXCESSIVE DROWSINESS. PT'S SON AGREED.
--- NOTE | 2018-04-30 13:47 | NUR ---
IN TO CHECK ON PT, PT SLEEPING. AWAKENS TO VOICE. VITALS OBTAINED. PT DENIES PAIN. DRESSING C/D/I, ICE IN PLACE. PT DENIES PAIN. PT STATES "ITCHING IS BETTER." PT ALSO STATES THAT NAUSEA HAS PASSED AT THIS TIME. PT STAING "I JUST WANT TO SLEEP." NO FURTHER NEEDS AT THIS TIME. SON AT BEDSIDE, CALL LIGHT IN REACH.
--- NOTE | 2018-04-30 15:45 | NUR ---
PT ARRIVED TO UNIT VIA HOSPITAL BED. PT VERY DROWSY BUT AWAKES TO VOICE EASILY AND RESPONDS APPROPRIATELY. PT DENIES PAIN. REPORTS NAUSEA BUT STATES "IT'S NOT BAD." REPORTS SENSATION DOWN TO TOES, GOOD MOVEMENT OF BILATERAL LOWER EXTREMITIES. RIGHT HIP INCISION DRESSED WITH MEPILEX, GAUZE, AND OPSITE, CDI. ICE TO INCISION SITE. ENRICO, SCD'S, AND HEEL PROTECTORS IN PLACE. IV INFUSING WNL. PT SATTING 96% ON 1LNC. PT TOOK A COUPLE SIPS OF WATER, LINSEY OK. CALL LIGHT WITHIN REACH. SON AT BEDSIDE.
--- NOTE | 2018-04-30 17:02 | NUR ---
PT REMAINS VERY DROWSY, EASILY AWAKENS, BUT FALLS ASLEEP EASILY DURING CONVERSATION. DENIES PAIN. CONT TO REPORT NAUSEA WHILE AWAKE, DR. BEE NOTIFIED BY PHONE, NO NEW ORDERS MADE AT THIS TIME. DRESSING CDI. CALL LIGHT WITHIN REACH. SON AT BEDSIDE.
--- NOTE | 2018-04-30 18:09 | NUR ---
PATIENT RESTING IN BED WITH EYES CLOSED. FAMILY AT BEDSIDE. KRYO FILLED. FRESH WATER PROVIDED. CALL LIGHT IN REACH. NO FURTHER NEEDS AT THIS TIME.
--- NOTE | 2018-04-30 18:14 | NUR ---
PATIENT RESTING IN BED WITH EYES CLOSED. FAMILY AT BEDSIDE. FRESH WATER PROVIDED. CALL LIGHT IN REACH. NO FURTHER NEEDS AT THIS TIME.
--- NOTE | 2018-04-30 19:06 | NUR ---
PT 1PA WITH WALKER [place] [facility] [place]. PT VOIDED AND TRANSFERRED BACK TO BED. ADDUCTOR PILLOW, TEDS, SCD'S, HEEL PROTECTORS IN PLACE. PT HAD APPROX 200ML EMESIS PRIOR TO GETTING UP STATES "I FEEL BETTER NOW". CALL LIGHT WITHIN REACH.
--- NOTE | 2018-04-30 19:25 | NUR ---
RECEIVED REPORT FROM DAY SHIFT RN. PATIENT IS RESTING IN BED. FAMILY IS AT THE BEDSIDE. PATIENT HAD 25ML OF EMESIS. DAY SHIFT RN ADMINISTERING PRN NAUSEA MEDICATION. NO FURTHER NEEDS NOTED. CALL LIGHT IN REACH.
--- NOTE | 2018-04-30 19:26 | NUR ---
PT HAD ANOTHER EPISODE OF EMESIS. MEDICATED WITH ZOFRAN. FAMILY AT BEDSIDE. CALL LIGHT WITHIN REACH.
--- NOTE | 2018-04-30 21:16 | NUR ---
PT SATING AT 100, WILL PUT HER ON ROOM AIR AND CONTINUE TO MONITOR. ON CONTINUOUS PULSE OX. SON IN ROOM, CALL LIGHT WITHIN REACH.
--- NOTE | 2018-04-30 21:25 | NUR ---
PATIENTS ASSESMENT COMPLETED. PATIENT IS RESTING IN BED. SON IS AT THE BEDSIDE. PATIENT DENIES ANY PAIN. PATIENT GIVEN EVENING MEDICATIONS PER ORDER. VITALS TAKEN AND RECORDED. PATIENT REMAINS ON A CLEAR LIQUID DIET AND IT IS ADVANCE TOELRATED. PATIENT DENIES ANY NAUSEA AT THIS TIME, BUT STATES IT COMES AND GOES. PATIENT CONTINUES TO REST IN BED WITH SCDS, TEDHOSE, WEDGE AND HEEL PROTECTORS IN PLACE. ICE PACK PLACED PER ORDER. PATIENTS EVENING MEDICATIONS GIVEN PER ORDER. PATIENT DENIES ANY PAIN. PATIENT REMAINS ON 1L VIA NC. PULSE OX IN PLACE. PATIENT DENIES ANY NEEDS AT THIS TIME.
--- NOTE | 2018-04-30 22:00 | NUR ---
PATIENT ASSISTED TO THE [facility] A 1PA W/FWW. PATIENT WAS ABLE TO PIVOT TRANSFER TO [facility] W/MINIMAL ASSISTANCE. PATIENT WAS ABLE TO VOID. PATIENT IS BACK IN BED RESTING. PATIENT WAS DIZZY WHILE TRANSFERRING. PATIENT HAD 150ML OF EMESIS. A SMALL ROUND WHITE PILL WAS OBSERVED IN PATIENTS EMESIS AND APPEARS TO BE PATIENTS BP MEDICATION. DR BUCKLEY NOTIFED. NO NEW ORDERS. PATIENT DENIES THE NEED FOR NAUSEA MEDICATION. PATIENT STATED "IT WAS JUST FROM BEING DIZZY". PATIENT EDUCATED ON THE IMPORTNACE OF NOTIFYING STAFF IF THE NAUSE RETURNS. PATIENT VERBALIZES UNDERSTANDING. NO FURTHER NEEDS NOTED. CALL LIGHT IN REACH.
--- NOTE | 2018-05-01 00:32 | NUR ---
PATIENT IS RESTING IN BED WITH EYES CLOSED. PULSE OX READINGS ARE WNL. SCDS, TEDHOSE, HEEL PROTECTORS, AND WEDGE IN PLACE. CALL LIGHT IN REACH.
--- NOTE | 2018-05-01 02:34 | NUR ---
PATIENT ASSISTED TO THE [facility] A 1PA W/FWW. PATIENT WAS ABLE TO PIVOT TRANSFER TO THE [facility]. PATIENT WAS ABLE TO VOID. PATIENT IS NOW BACK IN BED RESTING. WEDGE, SCDS, AND HEEL PROTECTORS. PATIENT RATES PAIN AT A 2/10. PATIENT DENIES THE NEED FOR PAIN MEDICATION. PATIENT DID COMPLAIN OF NAUSEA AFTER MOVEMENT. PATIENT DENIES THE NEED FOR PAIN MEDICATION. PATIENTS VITALS TAKEN AND RECORDED. PATIENT DENIES ANY FURTHER NEEDS AT THIS TIME. CALL LIGHT IN REACH.
--- NOTE | 2018-05-01 04:49 | NUR ---
PATIENT IS RESTING IN BED WITH EYES CLOSED. RR 17. PULSE OX READINGS ARE WNL. CALL LIGHT IS WITHIN REACH.
--- NOTE | 2018-05-01 05:09 | NUR ---
PATIENT RESTED WELL THROUGHOUT THE SHIFT. PATIENT IS A 1PA W/FWW. PATIENT HAS ONLY PIVOT TRANSFERED TO THE [facility]. PATIENT DOES WELL WITH ACTIVITY. PATIENT IS ON CLEARS AND HAS NOT TOLERATED ADVANCING HER DIET. PATIENT HAS STRUGGLED WITH NAUSEA THROOUGHOUT THE SHIFT. PATIENT IS ONLY NAUSEOUS AFTER MOVEMENT AND THEN IT SUBSIDES AFTER SHE IS BACK IN BED. PATIENT HAS WEDGE, HEEL PROTECTORS, TEDHOSE, AND FOOT SCDS IN PLACE. ICE IS TO BE APPLIED FOR 20 MINS Q1-2 HRS. PATIENT IS ON 1L VIA NC WHEN SHE IS ASLEEP. PATIENT HAS AN ORDER TO WORK WITH PT/OT. PATIENTS URINE OUTPUT IS QS. PATIENT IS AAOX3 AND USES CALL LIGHT APPROPRIATELY. PATIENTS DRESSING IS C/D/I, NO DRAINAGE NOTED.
--- NOTE | 2018-05-01 06:37 | OR ---
[facility] [address], [place] [address] Signed DATE OF OPERATION: 04/30/2018 SURGEON: Aren Santana MD PREOPERATIVE DIAGNOSIS: degenerative joint disease, right hip. POSTOPERATIVE DIAGNOSIS: degenerative joint disease, right hip. PROCEDURE PERFORMED: Right total hip arthroplasty. ASSISTANT MEDIA PLANNER: BRODY Mcgregor and MARYJANE Key. ANESTHESIA: Spinal. BLOOD LOSS: 150 mL. IMPLANTS: Edin Secur-Fit Advanced, size 8 stem, 56 mm PSL cup, -2.5 head. BRIEF HISTORY: Ruthann is a 77-year-old female with pain in her hip. She had undergone nonoperative treatment without substantial relief. Risks, benefits, and alternatives of operative intervention were discussed with her and she elected to proceed. DESCRIPTION OF PROCEDURE: Once consent was obtained, she was taken to the operating room. After adequate anesthesia, placed on operating table. All downside pressure points are well padded. She was placed in the left lateral decubitus position. An axillary roll was placed. The hip was prepped and draped in a standard sterile fashion. Standard anterior lateral approach was taken through the skin and subcutaneous tissue. IT band was split longitudinally. The vastus lateralis was split from the tip of the trochanter distally and elevated in a subperiosteal manner to the level of the lesser trochanter. The gluteus medius was split bluntly. Gluteus minimus and capsule were split sharply from the trochanter to the acetabular rim. Multiple loose bodies were removed. Two of them Electronically Signed By: AREN SNATANA MD 05/01/18 0637 PATIENT NAME: RUTHANN MIRANDA OPERATIVE REPORT DATE OF : 44 REPORT #: [id number] PHYSICIAN: AREN SANTANA MD PCP: NO PRIMARY CARE PHYSICIAN REPORT IS CONFIDENTIAL AND NOT TO BE RELEASED WITHOUT AUTHORIZATION [facility] [address], [place] [address] Signed being approximately 3 cm long. The hip was dislocated and the femoral neck cut made 1 fingerbreadth above the lesser trochanter. The femoral head was removed and taken to the back table. The periacetabular soft tissue was removed. The acetabulum was then reamed with concentrating on centering it more inferiorly. She did have some superior erosion. The acetabulum was reamed up to a 56 and 56 cup was impacted into position. The liner was impacted into position. Excellent stability was noted. It was in 40 degrees of abduction and 20 degrees of anteversion. The attention was turned to proximal femur, which was opened using the varshaie cutter, followed by the Ranjeet awl. The femur was then sequentially reamed and broached up to an eight. The knee was found to be quite well fitting. Standard offset neck and posterior head were placed. This was a little bit tight on reduction, so we decrease that to -2.5. She had excellent range of motion. No impingement. The hamstrings and quads were not tight. The hip was dislocated and the trial was removed. The final stem was impacted until it was well-seated. The -2.5 ceramic head was then impacted. The hip was reduced taken through range of motion and found to be stable. There was negative shock. The wound was closed again with antibiotic solution. A total of 3 L under pulse lavage. The periarticular soft tissues were injected with 100 mL ropivacaine Toradol mixture throughout. The capsule was closed with #1 Vicryl. The vastus was closed using a labral tape followed by the IT band with #1 Stratafix. Subcutaneous tissue with another Stratafix, and skin with libia. The wound was dressed with Mepilex Ag dressing and Opsite. She was placed in abduction brace, taken to the recovery room in satisfactory condition. All sponge, needle, and instrument counts were correct. Aren Santana MD BA/MODL /[id number] Copies: ~ Electronically Signed By: AREN SANTANA MD 05/01/18 0637 PATIENT NAME: RUTHANN MIRANDA OPERATIVE REPORT DATE OF : 44 REPORT #: [id number] PHYSICIAN: AREN SANTANA MD PCP: NO PRIMARY CARE PHYSICIAN REPORT IS CONFIDENTIAL AND NOT TO BE RELEASED WITHOUT AUTHORIZATION
--- NOTE | 2018-05-01 06:55 | NUR ---
PATIENTS IV IS NO LONGER PATENT. UNABLE TO START NEW IV AT THIS TIME. DR BEE NOTIFED. MAY LEAVE IV OUT. PATIENT NOTIFIED. MORNING MEDICATIONS GIVEN PER ORDER. PATIENT DENIES ANY PAIN. PATIENT DENIES ANY NEEDS AT THIS TIME.
--- NOTE | 2018-05-01 08:33 | NUR ---
CHANGE OF SHIFT: REPORT RECIEVED FROM FILIPPO BATES DURING CHANGE OF SHIFT THIS MORNING. WHITE BOARD UPDATED. CALL LIGHT WITHIN REACH. PATIENT RESTING COMFORTABLY IN BED, PLAN OF CARE DISCUSSED, NO COMPLAINTS AT THIS TIME. 0833: ROUNDED ON PATIENT FOR MORNING MEDICATIONS, PATIENT RESTING COMFORTABLYING BED.
--- NOTE | 2018-05-01 11:58 | NUR ---
PATIENT SITTING UP IN CHAIR. BATH WIPES AND TOOTHBRUSH AND TOOTHPASTE SET UP IN BATHROOM. CALL LIGHT IN REACH. NO FURTHER NEEDS AT THIS TIME.
--- NOTE | 2018-05-01 12:23 | NUR ---
ROUNDED ON PATIENT SITTING COMFORTABLY IN CHAIR, POSSESSIONS WITHIN REACH, NO COMPLAINTS OF PAIN, CALL LIGHT WITHING REACH.
--- NOTE | 2018-05-01 13:45 | NUR ---
PATIENT UP COMFORTABLY IN CHAIR, SON IN ROOM. FRESH ICE WATER PROVIDED. CALL LIGHT IN REACH. NO FURTHER NEEDS AT THIS TIME.
--- NOTE | 2018-05-01 14:43 | NUR ---
PT SITTING UP IN RECLINER. VISITING WITH FRIENDS. SON AT BEDSIDE. DR BUCKLEY IN TO ROUND ON PATIENT. TYLENOL AND GABAPENTIN ADMINISTERED PER SCHEDULE.
--- NOTE | 2018-05-01 15:40 | NUR ---
PATIENT RESTING COMFORTABLY IN BED WITH FAMILY AT BEDSIDE. VENOUS FOOD PUMP PLACED. CALL LIGHT WITHIN REACH. PHYSICAL THERAPY ARRIVED TO ROOM.
[2018-05-01] MEDS ORDERED: ALLERCLEAR10 MG PO (16:52)
--- NOTE | 2018-05-01 16:52 | NUR ---
MED REC COMPLETE
[2018-05-01] MEDS ORDERED: XARELTO10 MG PO (16:56)
[2018-05-01] MEDS ORDERED: NEURONTIN300 MG PO (16:57)
[2018-05-01] MEDS ORDERED: OXYCODONE HCL5 MG PO (16:57)
--- NOTE | 2018-05-01 19:10 | NUR ---
PT LEFT MEDICAL FLOOR IN WHEELCHAIR ACCOMPAINED BY LOCKSTITCH SLEEVE SETTER. STATED HER SON WAS OUT MOVING THE AUTO TO THE FRONT.
--- NOTE | 2018-05-02 15:34 | NUR ---
CHW NOTE REC'D CHW REFERRAL FROM FRANNY Garcia RN FOR MEDICAL NEEDS TO GET ESTABLISHED WITH A PCP. PHONE CALL TO PATIENT WHO GOES BY THE NAME "MANOJ". SHE STATES THAT SHE HAS A PCP LOCATED IN [facility], MANOJ WILLS MD LOCATED AT [id number]. THIS REFERRAL WILL BE CLOSED PATIENT IS NOT IN NEED TO FIND A PCP. ~ EDWARDO MEDLEY, [facility]
== END 2018-05-01 19:08 | disposition home or self-care (01) | DRG 470 ==
LOC: DSVR 04-30 06:35 → MS 04-30 09:15
PROVIDERS: ADMIT Specialist
PROC: 0SR903Z Replacement of Right Hip Joint with Ceramic Synthetic Substitute, Open Approach (ICD-10-PCS; principal; 2018-04-30 10:45)
DX: M16.11 Unilateral primary osteoarthritis, right hip (principal); I12.9 Hypertensive chronic kidney disease with stage 1 through stage 4 chronic kidney disease, or unspecified chronic kidney disease; N18.3 Chronic kidney disease, stage 3 (moderate); E03.9 Hypothyroidism, unspecified
CPT/HCPCS: 36415; 72170; 80048; 85025; 97110; 97116; 97161; C1776; G8978; G8979; J0690; J2250; J2274; J2300; J2370; J2405; J2550; J2704; J3010; J7120